=== PATIENT | male | born 1985 | race African-American/Black ===

== ENCOUNTER 2022-09-04 12:05 | Emergency (ER) | payer OTHER ==
[~2022-09-04] VITALS: Ht 182.9 cm; Wt 93.7 kg
[~2022-09-04 12:05] MED LIST: AMLO5TAB4 PO; LABE100T9 PO
[2022-09-04] MEDS ORDERED: ONDANSETRON HCL 4MG/2ML INJ IV STA (12:19)
[2022-09-04] MEDS ORDERED: FENTANYL CITRATE/PF 50MCG/ML 2ML VIAL IV ONE ×2 (12:30→14:15)
[2022-09-04 13:06] LABS: BASOPHILS % 0.4 % (0.0-2.0); EOSINOPHILS % 1.8 % (0.0-5.0); HEMATOCRIT. 34.3 % (42.0-52.0); LYMPHOCYTES % 9.3 % (20.0-50.0); MEAN CORPUSCULAR VOLUME 90.6 fL (80.0-94.0); MEAN PLATELET VOLUME 8.5 fl (7.4-10.4); MONOCYTES % 5.8 % (2.0-8.0); NEUTROPHILS % 82.7 % (40.0-76.0); PLATELET 269 x1000/uL (130-400); RED BLOOD CELL COUNT 3.79 mill/uL (4.7-6.1); RED CELL DISTRIBUTION WIDTH 17.5 % (11.6-14.6)
[2022-09-04 13:12] LABS: CHLORIDE 94 mEq/L (98-107)
[2022-09-04 13:17] LABS: PARTIAL THROMBOPLASTIN TIME 25.9 sec (23.4-31.0); PROTHROMBIN TIME 10.9 sec (9.6-11.0)
[2022-09-04 13:23] LABS: CREATINE KINASE 269 IU/L (39-308)
[2022-09-04] MEDS ORDERED: MORPHINE SULFATE 4 MG/ML CPJ (NOT FOR IM USE) IV ONE (14:00)
[2022-09-04] MEDS ORDERED: TETANUS, DIPHTHERIA, PERTUSSIS VAC/PF 0.5ML (>10YR OLD) IM ONE (14:15)
[2022-09-04 14:22] VITALS: BP 215/138
[2022-09-04] MEDS ORDERED: IOHEXOL-350 100 ML BOTTLE ONE (14:27)
== END 2022-09-04 14:40 | disposition short-term general hospital (02) ==
LOC: ER 12:22 → CANBEDREQ 20:10
DX: S22.20XA Unspecified fracture of sternum, initial encounter for closed fracture (principal); S26.00XA Unspecified injury of heart with hemopericardium, initial encounter; J81.1 Chronic pulmonary edema; N28.9 Disorder of kidney and ureter, unspecified; R51.9 Headache, unspecified; Z98.890 Other specified postprocedural states; V49.49XA Driver injured in collision with other motor vehicles in traffic accident, initial encounter; Y93.89 Activity, other specified; Y92.89 Other specified places as the place of occurrence of the external cause; Y99.8 Other external cause status
CPT/HCPCS: 36415; 70450; 71045; 71275; 72125; 75635; 80053; 82550; 83690; 84484; 85025; 85610; 85730; 86850; 86900; 86901; 90471; 90715; 93005; 96374; 96375; 96376; 99291; J2270; J2405; J3010; Q9967